=== PATIENT | male | born 1995 | race Caucasian/White ===

== ENCOUNTER 2018-09-24 10:07 | Emergency (ER) | payer OTHER ==
[~2018-09-24] VITALS: Ht 160 cm; Wt 70.0 kg
[2018-09-24 10:12] VITALS: Ht 160 cm; Wt 70.0 kg
[2018-09-24] MEDS ORDERED: ONDANSETRON 4 MG INJ IV STA ×2 (10:18→12:46)
[2018-09-24] MEDS ORDERED: HYDROmorphONE 1 MG/ML SYG IV STA ×2 (10:18→11:15)
[2018-09-24] MEDS ORDERED: SOD CHLORIDE 0.9% 500 ML IV STA (10:18)
[2018-09-24] MEDS ORDERED: DIPHTH/TET/ACEL PERTUSS (ADULT) 0.5 ML VIAL IM* ONE (10:30)
[2018-09-24] MEDS ORDERED: CEFAZOLIN 2 GM/50 ML (PMX) 50 ML IVPB ONE (10:30)
[2018-09-24] MEDS ORDERED: LIDOCAINE 1% (MPF) 5 ML VIAL INJ ONE (10:30)
[2018-09-24] MEDS ORDERED: HYDROmorphONE 0.5 MG/0.5 ML SYG IV STA (10:33)
--- NOTE | 2018-09-24 12:54 | CONS ---
Date/Time of Note Date/Time of Note DATE: 09/24/18 TIME: 12:45 Assessment/Plan Assessment/Plan Assessment/Plan Left long and small finger amputation, complete Left ring finger laceration and complex wound We discussed revising the amputation to the long and small finger and closing the ring finger wound. The ring finger wound may require skin graft at a later date if it does not heal by secondary intention. We discussed risks, benefits, alternatives. Risks include infection, pain, bleeding, neuroma, sensitivity, phantom pain, more surgery, decreased mobility and strength. We will perform this in the ER. He did receive tetanus, Ancef, and PCN shot. He elects to proceed with the surgery. All questions were answered. I will see him in my office later this week. Result Diagram: 09/24/18 1025 09/24/18 1025 Results 24hrs Laboratory Tests Test 09/24/18 10:25 White Blood Count 8.7 Red Blood Count 5.46 Hemoglobin 15.2 Hematocrit 46.7 Mean Corpuscular Volume 85.5 Mean Corpuscular Hemoglobin 27.8 L Mean Corpuscular Hemoglobin Concent 32.5 Red Cell Distribution Width 11.9 Platelet Count 240 Mean Platelet Volume 10.9 H Immature Granulocytes % 0.300 Neutrophils % 49.8 Lymphocytes % 39.7 Monocytes % 8.2 Eosinophils % 1.4 Basophils % 0.6 Nucleated Red Blood Cells % 0.0 Immature Granulocytes # 0.030 Neutrophils # 4.3 Lymphocytes # 3.4 H Monocytes # 0.7 Eosinophils # 0.1 Basophils # 0.1 Nucleated Red Blood Cells # 0.0 Prothrombin Time 11.5 L Prothrombin Time Ratio 0.9 INR International Normalized Ratio 0.83 Activated Partial Thromboplast Time 25.9 Sodium Level 144 Potassium Level 3.4 L Chloride Level 105 Carbon Dioxide Level 19 L Anion Gap 20 H Blood Urea Nitrogen 20 Creatinine 1.05 Est Glomerular Filtrat Rate mL/min > 60 Glucose Level 118 Calcium Level 9.3 Consultation Date/Type/Reason Admit Date/Time 09/24/18 10:30 AM Date of Consultation: Sep 24, 2018 Type of Consult Hand surgery Reason for Consultation left long, ring, and small finger amputation Hx of Present Illness Patient is a 23 year old right hand dominant male who was fixing a fan on his car when his left long, ring, and small fingers were struck by the blade. He was brought to ER by private vehicle and found to have amputations of the distal portion of his long and small finger, and laceration of the ring finger. He endorses intact sensation in the ring and long finger. He endorses pain. He has no previous hand injury and is otherwise healthy. 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 Constitutional: No no complaints, No improved, No chills, No diaphoresis, No disoriented, No febrile, No poor po, No requiring IVF, No requiring O2, No other Eyes: No no complaints, No pain, No discharge, No redness, No visual change, No other ENT: No no complaints, No bleeding, No pain, No congestion, No discharge, No dysphagia, No sore throat, No other Respiratory: No no complaints, No pain, No cough, No pleuritic pain, No shortness of breath, No sputum, No wheezing, No other Cardiovascular: No no complaints, No chest pain, No edema, No lightheadedness, No orthopenea, No palpitations, No paroxysmal nocturnal dyspnea, No other Gastrointestinal: No no complaints, No pain, No blood, No constipation, No decreased appetite, No diarrhea, No flatus, No nausea, No passing stool, No vomiting, No other Genitourinary: No no complaints, No bleeding, No dysuria, No discharge, No flank pain, No hematuria, No other Musculoskeletal: no complaints, back pain, bone/joint pain, neck pain, restricted range of motion, swelling, other Skin: no complaints, bruising, erythema, laceration, pruritis, rash, skin lesions, other (ble) Neurologic: No no complaints, No confusion, No dizziness, No focal-weakness, No headache, No syncope, No seizure, No other Endocrine: No no complaints, No polyuria, No polydypsia, No dry skin, No temp intolerance, No other Lymphatic: No no complaints, No adenopathy, No tender nodes, No lymphadema, No other Psychological: No no complaints, No nl mood/affect, No anxiety, No confusion, No depression, No suicidal, No other Immunologic: No no complaints, No immunodeficiency, No pruritis, No rhinitis, No urticaria, No other Past Medical History Medical History: no pertinent history Medications None Allergies: Coded Allergies: No Known Allergy (Unverified , 12/23/12) Past Surgical History Past Surgical Hx: no surgical history Family History Significant Family History: no pertinent family hx Social History Alcohol Use: none Smoking Status: Never smoker Drug Use: none Exam/Review of Systems Vital Signs Vitals Vital Signs Date Temp Pulse Resp B/P (MAP) Pulse Ox O2 O2 Flow FiO2 Time Delivery Rate 09/24/18 98.2 72 18 145/72 99 10:12 (96) Exam Awake, alert, in no acute distress. Left long finger is amputated at the level just distal to the DIP joint. The laceration extends to the ulnar aspect of the PIP joint. The wound is complex. There is bleeding noted. He has intact FDP and FDS function of the long finger. Ring finger volar aspect with large laceration involving majority of the pulp. there is a 1x1cm area of skin loss down to the peritenon. he has intact sensation to the ring fingertip and brisk capillary refill. Intact FDP and FDS. Small finger is amputated at the level of the DIP joint. Intact FDS only. FDP with minimal function. Intact extension. Imaging Imaging Left hand xrays 3 views demonstrates amputation through the distal phalanx of the long and small finger. There is a non-displaced fracture of the small finger distal phalanx extending to the DIP joint. Ring finger is intact. HSEA COON MD Sep 24, 2018 12:54
[2018-09-24] MEDS ORDERED: IBUP800T48 PO (12:59)
[2018-09-24] MEDS ORDERED: CEPH-443 PO (12:59)
[2018-09-24] MEDS ORDERED: ONDA4TAB14 PO (12:59)
[2018-09-24] MEDS ORDERED: HYDR-3980 PO (12:59)
--- NOTE | 2018-09-24 13:04 | OPR ---
Date/Time of Note Date/Time of Note DATE: 09/24/18 TIME: 12:54 Operative Report Procedure Date: Sep 24, 2018 Preoperative Diagnosis Left long and small finger complete amputation Left ring finger complex laceration Postoperative Diagnosis Left long and small finger complete amputation Left ring finger complex laceration Operation/Procedure Performed Left small finger revision amputation Left long finger revision amputation Left ring finger, repair of complex laceration, 5cm Surgeon Hedy García Meal Temperer None Anesthesia Type: other (Local) Estimated Blood Loss: 0 - 10 ml's Transfusion none Specimen None Grafts/Implants none Tubes/Drains None Complications none Pt Condition Post Procedure: stable Disposition: home Indications Patient sustained traumatic amputations to the long and small finger and complex wound to the ring finger. He is indicated for the above procedure. Risks of procedure include infection, pain, bleeding, stiffness, neuroma, sensitivity, phantom pain, decreased strength and mobility. He elects to proceed. Procedure Description Procedure was performed in the Emergency Room. The left hand was prepped with alcohol and 10cc of 1% lidocaine was injected for digital block into the long, ring, and small fingers. The left hand was then prepped steriley and draped. Time-out was perofrmed indicating correct patient, site, and procedure. The fingers were first irrigated with normal saline and debris was removed. The small finger was first inspected. There was a remnant of the distal phalanx that was visualized. The distal phalanx was excised sharply with a knife. The radial and ulnar neurovascular bundles were isolated and the digital nerves were transected as proximal as possible. There was now a redundant skin flap that was excised. The wound was then repaired back primarily with 4-0 nylon loosely with good approximation. Next, the long finger was inspected. There was more distal phalanx remaining in the long finger tip. There was also a complex laceration on the ulnar aspect of the finger. The distal phalanx was rongeuered a few millimeters in order to achieve primary closure. The digital nerves were isolated and transected proximally. The remaining germinal matrix was excised. The laceration was then repaired loosely with 4-0 nylon, excising devitalized skin. Then, the radial distal skin flap was pulled over the tip of the phalanx and repaired with 4-0 nylon with good approximation. Finally, the ring finger was inspected. Devitalized skin was debrided and the wound was closed loosely with 4-0 nylon. There was an approximately 1x1cm area were the skin was avulsed off and could not be closed primarily. This was left open. More local anesthetic had to be administered during the case. We also utilized pen cautery during the case for hemostasis and no tourniquet was utilized. Sterile dressings were then applied. There was brisk capillary refill in the fingers. He was placed into a volar fiberglass splint. Patient tolerated the procedure well without complicat ions. HEDY GARCÍA MD Sep 24, 2018 13:04
--- NOTE | 2018-09-24 13:19 | ERD ---
ER Documentation Chief Complaint Chief Complaint left 3erd and 5th digit tip amputation, 4th lac HPI 23-year-old male who presents to the emergency room after striking his left hand with a car fan. The patient has amputation of the fingers of the left third and fifth digits. His pain is 9 out of 10, throbbing. Unknown tetanus status. He is right-hand dominant. This occurred approximately 30 minutes prior to arrival. ROS All systems reviewed and are negative except as per history of present illness. Medications Home Meds Active Scripts Cephalexin* (Keflex*) 500 Mg Capsule, 500 MG PO QID for 7 Days, CAP Prov:SAMMI MICHLE MD 09/24/18 Ibuprofen* (Motrin*) 800 Mg Tab, 800 MG PO Q6H PRN for PAIN AND OR ELEVATED TEMP, #30 TAB Prov:SAMMI MICHEL MD 09/24/18 Ondansetron (Ondansetron Odt) 4 Mg Tab.rapdis, 4 MG PO Q6H PRN for NAUSEA AND/OR VOMITING, #10 TAB Prov:SAMMI MICHEL MD 09/24/18 Hydrocodone/Acetaminophen ([place] 10-325 Tablet) 1 Each Tablet, 1 TAB PO Q6H PRN for PAIN, #12 TAB Prov:SAMMI MICHEL MD 09/24/18 Allergies Allergies: Coded Allergies: No Known Allergy (Unverified , 09/17/12) PMhx/Soc Medical and Surgical Hx: pt denies Medical Hx, pt denies Surgical Hx Hx Alcohol Use: No Hx Substance Use: No Hx Tobacco Use: No Smoking Status: Never smoker FmHx Family History: No diabetes Physical Exam Vitals Vital Signs Date Temp Pulse Resp B/P (MAP) Pulse Ox O2 O2 Flow FiO2 Time Delivery Rate 09/24/18 98.2 72 18 145/72 99 10:12 (96) Physical Exam General: Well developed, well nourished, no acute distress Head: Normocephalic, atraumatic. Eyes: Pupils equally reactive, EOM intact ENT: Moist mucous membranes Neck: Supple, no lymphadenopathy Respiratory: Lungs clear bilaterally, no distress Cardiovascular: RRR, no murmurs, rubs, or gallops Abdominal: Soft, non-tender, non-distended, no peritoneal signs : Deferred MSK: The patient has an amputation of the left third digit just distal to the DIP joint. Exposed bone. He has amputation of the left fifth digit just at the DIP joint with exposed bone. Laceration of the fourth digit without exposed bone. 2+ radial and ulnar pulses. Limited examination for ligamentous and tendinous injury Neurologic: Alert and oriented, moving all extremities, normal speech, no focal weakness, no cerebellar signs Skin: as above Psych: Normal mood Result Diagram: 09/24/18 1025 09/24/18 1025 Results 24 hrs Laboratory Tests Test 09/24/18 10:25 White Blood Count 8.7 10^3/ul Red Blood Count 5.46 10^6/ul Hemoglobin 15.2 g/dl Hematocrit 46.7 % Mean Corpuscular Volume 85.5 fl Mean Corpuscular Hemoglobin 27.8 pg Mean Corpuscular Hemoglobin Concent 32.5 g/dl Red Cell Distribution Width 11.9 % Platelet Count 240 10^3/UL Mean Platelet Volume 10.9 fl Immature Granulocytes % 0.300 % Neutrophils % 49.8 % Lymphocytes % 39.7 % Monocytes % 8.2 % Eosinophils % 1.4 % Basophils % 0.6 % Nucleated Red Blood Cells % 0.0 /100WBC Immature Granulocytes # 0.030 10^3/ul Neutrophils # 4.3 10^3/ul Lymphocytes # 3.4 10^3/ul Monocytes # 0.7 10^3/ul Eosinophils # 0.1 10^3/ul Basophils # 0.1 10^3/ul Nucleated Red Blood Cells # 0.0 10^3/ul Prothrombin Time 11.5 Sec Prothrombin Time Ratio 0.9 INR International Normalized Ratio 0.83 Activated Partial Thromboplast Time 25.9 Sec Sodium Level 144 mmol/L Potassium Level 3.4 mmol/L Chloride Level 105 mmol/L Carbon Dioxide Level 19 mmol/L Anion Gap 20 Blood Urea Nitrogen 20 mg/dl Creatinine 1.05 mg/dl Est Glomerular Filtrat Rate mL/min > 60 mL/min Glucose Level 118 mg/dl Calcium Level 9.3 mg/dl Current Medications Medications Dose Sig/Tristan Start Time Status Last (Trade) Ordered Route PRN Stop Time Admin Dose Reason Admin Sodium 500 ml @ Q1H STAT 09/24/18 DC 09/24/18 Chloride 500 mls/hr IV 10: 10:37 09/24/18 11:17 1 mg ONCE STAT 12/30/18 DC 09/24/18 Hydromorphone IV 10:18 10:27 HCl 09/24/18 (Dilaudid) 10:20 Ondansetron 4 mg ONCE STAT 09/24/18 DC 09/24/18 HCl (Zofran IV 10:18 10:26 Inj) 09/24/18 10:20 Cefazolin 50 ml @ ONCE ONCE 09/24/18 DC 09/24/18 Sodium/ 100 mls/hr IVPB 10:30 10:28 Dextrose 09/24/18 10:59 Diphtheria/ 0.5 ml ONCE ONCE 09/24/18 DC 09/24/18 Tetanus/Acell IM* 10:30 10:32 Pertussis 09/24/18 (Adacel) 10:31 Lidocaine 20 ml ONCE ONCE 09/24/18 DC 09/24/18 (Xylocaine INJ 10:30 11:21 1% (Mpf)) 09/24/18 10:31 1 mg ONCE STAT 09/24/18 DC 09/24/18 Hydromorphone IV 10:33 10:41 HCl 09/24/18 (Dilaudid) 10:34 1 mg ONCE STAT 09/24/18 DC 09/24/18 Hydromorphone IV 11:15 11:21 HCl 09/24/18 (Dilaudid) 11:16 Ondansetron 4 mg ONCE STAT 09/24/18 DC 09/24/18 HCl (Zofran IV 12:46 12:50 Inj) 09/24/18 12:47 Procedures/MDM EKG, MONITORS, & DIAGNOSTIC IMAGING: X-ray hand IMPRESSION: 1. Amputation of a portion of the third and fifth distal phalanges with a small remnant of the phalanx bases. 2. No other acute fractures or dislocations. PROCEDURES: Splint Application Note: Splint type: ortho volar Extremity: left hand Indication: amputation The patient was consented at bedside prior to splint application and states understanding of risks, benefits, and alternatives. The patient was neurovascularly intact prior to and status post application of the splint. The patient tolerated the procedure well and there were no complications. LAB INTERPRETATION: no acute process noted MEDICAL DECISION MAKING: The patient has amputation of the left third and fifth digits. This is complicated likely requires hand surgery consultation. Patient will benefit from pain control medication antibiotics and hemorrhage control. ER COURSE: * An IV was immediately established and the patient was given pain control medication, antibiotics. * Tetanus was updated * Dr. Coon, hand specialty was consulted and kind enough to come to the patient's bedside to provide surgical intervention for the patient's amputations. Please see her documentation note for care. * Patient received multiple doses of pain medication. He was immobilized. Outpatient follow-up with hand specialist within 24-48 hours. Empiric antibiotics appropriate. CONSULTATION: Hand surgery, Dr Coon as above DISPOSITION PLAN: We discussed follow up with the patient's primary care doctor within 24 to 48 hours as needed. We also discussed return to the emergency room for worsening symptoms or worsening condition. Outpatient referral: Dr Coon Discharge Medications: [place], Zofran, Motrin, Keflex We discussed the use of narcotics including avoidance of operating heavy machinery and driving as well as its addictive properties. Departure Diagnosis: Primary Impression: Traumatic amputation of finger Encounter type: initial encounter Qualified Codes: S68.119A - Complete traumatic metacarpophalangeal amputation of unspecified finger, initial en counter Condition: Stable Patient Instructions: Finger Tip Amputation, Open Treatment Referrals: NAIF GAMBOA (PCP) SHEA COON MD Additional Instructions: Call your primary care doctor TOMORROW for an appointment during the next 2-3 days.See the doctor sooner or return here if your condition worsens before your appointment time. SAMMI MICHEL MD Sep 24, 2018 13:19
[2018-09-24 14:00] VITALS: BP 109/64; PULSE 72; RESP 20
== END 2018-09-24 14:03 | disposition home or self-care (01) ==
LOC: E/R 10:07
DX: S68.113A Complete traumatic metacarpophalangeal amputation of left middle finger, initial encounter (principal); R40.2142 Coma scale, eyes open, spontaneous, at arrival to emergency department; R40.2362 Coma scale, best motor response, obeys commands, at arrival to emergency department; R40.2252 Coma scale, best verbal response, oriented, at arrival to emergency department; S68.117A Complete traumatic metacarpophalangeal amputation of left little finger, initial encounter; M79.645 Pain in left finger(s); W22.8XXA Striking against or struck by other objects, initial encounter; Y92.9 Unspecified place or not applicable; Z23 Encounter for immunization
CPT/HCPCS: 29125; 36415; 73130; 80048; 85025; 85610; 85730; 90471; 90715; 96374; 96375; 96376; 99284; J0690; J1170; J2405; J7040